=== PATIENT | female | born 2005 ===

== ENCOUNTER → 2023-01-20 10:16 | Outpatient (BNV) | payer OTHER, SELFPAY ==
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
== END ==
PROVIDERS: Visit Provider Nurse Practitioner Family
DX: N92.6 Irregular menstruation, unspecified (principal); Z84.89 Family history of other specified conditions; F41.9 Anxiety disorder, unspecified; Z62.810 Personal history of physical and sexual abuse in childhood; Z97.5 Presence of (intrauterine) contraceptive device
CPT/HCPCS: 99204

== ENCOUNTER → 2023-03-03 10:25 | Outpatient (BNV) | payer OTHER, SELFPAY ==
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
== END ==
PROVIDERS: Visit Provider Nurse Practitioner Family
DX: F32.1 Major depressive disorder, single episode, moderate (principal); F41.9 Anxiety disorder, unspecified; G47.00 Insomnia, unspecified; Z62.810 Personal history of physical and sexual abuse in childhood; R68.89 Other general symptoms and signs; L65.9 Nonscarring hair loss, unspecified
CPT/HCPCS: 99215

== ENCOUNTER → 2023-03-30 10:17 | Outpatient (BNV) | payer OTHER, SELFPAY ==
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
== END ==
PROVIDERS: Visit Provider Nurse Practitioner Family
DX: Z30.09 Encounter for other general counseling and advice on contraception (principal); F32.1 Major depressive disorder, single episode, moderate; Z62.810 Personal history of physical and sexual abuse in childhood; Z84.89 Family history of other specified conditions; Z59.01 Sheltered homelessness
CPT/HCPCS: 99215

== ENCOUNTER → 2023-04-13 10:11 | Outpatient (BNV) | payer OTHER, SELFPAY ==
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
== END ==
PROVIDERS: Visit Provider Nurse Practitioner Family
DX: Z59.01 Sheltered homelessness (principal); F33.1 Major depressive disorder, recurrent, moderate; F41.1 Generalized anxiety disorder; F41.0 Panic disorder [episodic paroxysmal anxiety]; F43.10 Post-traumatic stress disorder, unspecified; G47.00 Insomnia, unspecified
CPT/HCPCS: 99215

== ENCOUNTER → 2023-05-18 10:11 | Outpatient (BNV) | payer OTHER, SELFPAY ==
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
== END ==
PROVIDERS: Visit Provider Nurse Practitioner Family
DX: F43.10 Post-traumatic stress disorder, unspecified (principal); F41.1 Generalized anxiety disorder; F41.0 Panic disorder [episodic paroxysmal anxiety]; F33.1 Major depressive disorder, recurrent, moderate; Z59.01 Sheltered homelessness; Z62.810 Personal history of physical and sexual abuse in childhood; Z84.89 Family history of other specified conditions
CPT/HCPCS: 99215

== ENCOUNTER → 2023-06-08 09:31 | Outpatient (BNV) | payer OTHER, SELFPAY ==
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
== END ==
PROVIDERS: Visit Provider Nurse Practitioner Family
DX: R51.9 Headache, unspecified (principal); N92.6 Irregular menstruation, unspecified
CPT/HCPCS: 99213

== ENCOUNTER → 2023-08-26 09:30 | Outpatient (BNV) | payer OTHER, SELFPAY ==
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
== END ==
PROVIDERS: Visit Provider Nurse Practitioner Family
DX: F43.10 Post-traumatic stress disorder, unspecified (principal); F41.1 Generalized anxiety disorder; F41.0 Panic disorder [episodic paroxysmal anxiety]; F33.1 Major depressive disorder, recurrent, moderate; Z59.00 Homelessness unspecified; F41.9 Anxiety disorder, unspecified; Z62.810 Personal history of physical and sexual abuse in childhood; S69.91XA Unspecified injury of right wrist, hand and finger(s), initial encounter; Z71.89 Other specified counseling
CPT/HCPCS: 99215

== ENCOUNTER → 2023-08-30 10:45 | Outpatient (BNV) | payer OTHER, SELFPAY ==
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
== END ==
PROVIDERS: Visit Provider Nurse Practitioner Family
DX: S69.91XA Unspecified injury of right wrist, hand and finger(s), initial encounter (principal); Z59.00 Homelessness unspecified; Z71.89 Other specified counseling; F43.10 Post-traumatic stress disorder, unspecified
CPT/HCPCS: 99213

== ENCOUNTER → 2023-11-11 10:59 | Outpatient (BNV) | payer OTHER, SELFPAY ==
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
== END ==
PROVIDERS: Visit Provider Nurse Practitioner Family
DX: R51.9 Headache, unspecified (principal); Z86.69 Personal history of other diseases of the nervous system and sense organs; Z78.9 Other specified health status; Z71.89 Other specified counseling
CPT/HCPCS: 99213